=== PATIENT | female | born 1950 | race Caucasian/White ===

== ENCOUNTER 2023-07-14 09:55 | Emergency (ER) | payer OTHER ==
[~2023-07-14] VITALS: Ht 167.6 cm; Wt 72.6 kg
[~2023-07-14 09:55] MED LIST: SYNTHROID0.125 MG PO; VIBRAMYCIN100 MG PO
== END 2023-07-14 11:32 | disposition home or self-care (01) ==
LOC: ED 09:55
DX: S93.602A Unspecified sprain of left foot, initial encounter (principal); Z98.890 Other specified postprocedural states; W01.0XXA Fall on same level from slipping, tripping and stumbling without subsequent striking against object, initial encounter; Y93.89 Activity, other specified; Y92.89 Other specified places as the place of occurrence of the external cause; Y99.8 Other external cause status